=== PATIENT | female | born 1975 | race Hispanic/Latino ===

== ENCOUNTER 2020-06-09 00:18 | Emergency (ER) | payer SELFPAY ==
[2020-06-09 01:02] LABS: #Basophils 0.1 thou/uL (0.0-0.2); #Eosinphils 0.8 thou/uL (0.0-0.7); #Lymphocytes 1.4 thou/uL (1.20-3.40); #Monocytes 0.7 thou/uL (0.11-0.59); #Neutrophils 4.8 thou/uL (1.40-6.50); %Basophils 0.9 % (0.0-1.0); %Eosinophils 10.4 % (0.0-10.0); %Lymphocytes 18.6 % (21.0-51.0); %Monocytes 8.7 % (0.0-10.0); %Neutrophils 61.4 % (42.0-75.0); Hemoglobin 12.7 g/dL (12.0-16.0); Mean Corpuscular HGB CONC 34.3 g/dL (32.0-36.0); Mean Corpuscular Hemoglobin 31.5 pg (27.0-31.0); Mean Corpuscular Volume 91.8 fL (78.0-98.0); Platelet Count 382 thou/uL (130-400); RBC Distribution Width 11.8 % (11.5-14.5); Red Blood Cell (RBC) Count 4.03 mill/uL (4.20-5.40); White Blood Cell (WBC) Count 7.8 thou/uL (4.8-10.8)
[2020-06-09 01:22] LABS: ALT (SGPT) 13 U/L (8-55); AST (SGOT) 12 U/L (5-34); Albumin 3.7 g/dL (3.5-5.0); Alkaline Phosphatase 122 U/L (40-110); Anion Gap 13 mmol/L (10-20); BUN (Urea Nitrogen) 9 mg/dL (7.0-18.7); Bilirubin, Total 0.3 mg/dL (0.2-1.2); Calc. Creatinine Clearance 0 mL/min (70-130); Calcium 8.9 mg/dL (7.8-10.44); Carbon Dioxide 23 mmol/L (22-29); Chloride 107 mmol/L (98-107); Estimated GFR-MDRD 77; Globulin 3.6 g/dL (2.4-3.5); Glucose 115 mg/dL (70-105); Potassium 3.5 mmol/L (3.5-5.1); Protein, Total 7.3 g/dL (6.0-8.3); Sodium 139 mmol/L (136-145)
[2020-06-09] MEDS ORDERED: Ondansetron PF 4 MG/2 ML Vial ONE (01:22)
[2020-06-09] MEDS ORDERED: Acetaminophen 500 MG TAB ONE (01:23)
[2020-06-09] MEDS ORDERED: Metoclopramide HCl 10 MG/2 ML VIAL ONE (01:31)
[2020-06-09] MEDS ORDERED: diphenhydrAMINE 50 MG/ML VIAL ONE (01:31)
--- NOTE | 2020-06-09 07:22 | CT ---
PRELIMINARY REPORT/[facility]/EMERGENCY AFTER HOURS PROCEDURE: CT SCAN OF THE BRAIN WITHOUT IV CONTRAST CLINICAL HISTORY: Fall TECHNIQUE: Axial images obtained. Coronal images obtained. Sagittal images obtained. Exam is performed without intravenous contrast. Per PQRS, CT exam is performed using one or more of the following dose reduction technique: Automated exposure control, adjustment of mA and/or KV according to patient size, or use of iterative reconstr uction techniques. COMPARISON: None. FINDINGS: Negative for acute bleed. Negative for acute infarct. Normal sized ventricles. Extra-axial compartments are normal. Sinuses are clear. Mastoid air spaces are clear. Middle ear cavities are clear. Calvarium is intact. Scalp is unremarkable. IMPRESSION: 1. Negative for acute intracranial process. CT OF THE CERVICAL SPINE CLINICAL HISTORY: Fall TECHNIQUE: Axial images obtained. Coronal images obtained. Sagittal images obtained. Exam is performed without intravenous contrast. Per PQRS, CT exam is performed using one or more of the following dose reduction technique: Automated exposure control, adjustment of mA and/or KV according to patient size, or use of iterative reconstr uction techniques. COMPARISON: None. FINDINGS: Straightening of the cervical spine is seen which can be related to positioning vs muscle spasm. Negative for acute process in the cervical spine. Negative for acute compression fracture. Unremarkable soft tissues. Disc spaces are unremarkable. IMPRESSION: 1. Negative for acute process in the cervical spine. ELECTRONICALLY SIGNED BY: Macario Valdes MD Jun 09, 2020 1:08:37 AM CDT This report is intended for review by the ordering physician only, in accordance of law. If you recei ve this report in error, please call [facility] at [phone]. FINAL REPORT EMERGENCY AFTER HOURS CT CERVICAL SPINE WITHOUT CONTRAST: FINDINGS/IMPRESSION: I agree with the findings and impression given in the preliminary report per [facility] physici an. No evidence of acute osseous abnormality of the cervical spine. POS: EAA
--- NOTE | 2020-06-09 07:23 | CT ---
PRELIMINARY REPORT/[facility]/EMERGENCY AFTER HOURS PROCEDURE: CT SCAN OF THE BRAIN WITHOUT IV CONTRAST CLINICAL HISTORY: Fall TECHNIQUE: Axial images obtained. Coronal images obtained. Sagittal images obtained. Exam is performed without intravenous contrast. Per PQRS, CT exam is performed using one or more of the following dose reduction technique: Automated exposure control, adjustment of mA and/or KV according to patient size, or use of iterative reconstr uction techniques. COMPARISON: None. FINDINGS: Negative for acute bleed. Negative for acute infarct. Normal sized ventricles. Extra-axial compartments are normal. Sinuses are clear. Mastoid air spaces are clear. Middle ear cavities are clear. Calvarium is intact. Scalp is unremarkable. IMPRESSION: 1. Negative for acute intracranial process. CT OF THE CERVICAL SPINE CLINICAL HISTORY: Fall TECHNIQUE: Axial images obtained. Coronal images obtained. Sagittal images obtained. Exam is performed without intravenous contrast. Per PQRS, CT exam is performed using one or more of the following dose reduction technique: Automated exposure control, adjustment of mA and/or KV according to patient size, or use of iterative reconstr uction techniques. COMPARISON: None. FINDINGS: Straightening of the cervical spine is seen which can be related to positioning vs muscle spasm. Negative for acute process in the cervical spine. Negative for acute compression fracture. Unremarkable soft tissues. Disc spaces are unremarkable. IMPRESSION: 1. Negative for acute process in the cervical spine. ELECTRONICALLY SIGNED BY: Macario Valdes MD Jun 09, 2020 1:08:37 AM CDT This report is intended for review by the ordering physician only, in accordance of law. If you recei ve this report in error, please call [facility] at [phone]. FINAL REPORT EMERGENCY AFTER HOURS CT BRAIN: FINDINGS/IMPRESSION: I agree with the findings and impression given in the preliminary report per [facility] physici an. No evidence of acute intracranial abnormality. POS: EAA
== END 2020-06-09 02:20 | disposition home or self-care (01) ==
LOC: ERS 00:18
DX: S06.0X9A Concussion with loss of consciousness of unspecified duration, initial encounter (principal); J45.909 Unspecified asthma, uncomplicated; Z86.73 Personal history of transient ischemic attack (TIA), and cerebral infarction without residual deficits; Z87.891 Personal history of nicotine dependence; Z79.82 Long term (current) use of aspirin; W17.89XA Other fall from one level to another, initial encounter
CPT/HCPCS: 36415; 70450; 72125; 80053; 84484; 85025; 93005; 96361; 96374; 96375; J1200; J2405; J2765

== ENCOUNTER 2021-01-15 17:20 | Inpatient (IN) | payer SELFPAY ==
[2021-01-15 18:16] LABS: #Basophils 0.1 thou/uL (0.0-0.2); #Eosinphils 1.1 thou/uL (0.0-0.7); #Lymphocytes 1.5 thou/uL (1.20-3.40); #Monocytes 0.9 thou/uL (0.11-0.59); #Neutrophils 5.3 thou/uL (1.40-6.50); %Basophils 1.3 % (0.0-1.0); %Eosinophils 12.4 % (0.0-10.0); %Lymphocytes 16.4 % (21.0-51.0); %Monocytes 10.2 % (0.0-10.0); %Neutrophils 59.7 % (42.0-75.0); Hemoglobin 12.7 g/dL (12.0-16.0); Mean Corpuscular HGB CONC 34.3 g/dL (32.0-36.0); Mean Corpuscular Hemoglobin 31.5 pg (27.0-31.0); Mean Corpuscular Volume 91.8 fL (78.0-98.0); Mean Platelet Volume 6.8 fL (7.4-10.4); Platelet Count 390 thou/uL (130-400); RBC Distribution Width 11.5 % (11.5-14.5); Red Blood Cell (RBC) Count 4.03 mill/uL (4.20-5.40); White Blood Cell (WBC) Count 8.9 thou/uL (4.8-10.8)
[2021-01-15 18:36] LABS: ALT (SGPT) 10 U/L (8-55); AST (SGOT) 11 U/L (5-34); Albumin 3.8 g/dL (3.5-5.0); Alkaline Phosphatase 108 U/L (40-110); Anion Gap 12 mmol/L (10-20); BUN (Urea Nitrogen) 12 mg/dL (7.0-18.7); Bilirubin, Total 0.4 mg/dL (0.2-1.2); Calc. Creatinine Clearance 0 mL/min (70-130); Calcium 8.6 mg/dL (7.8-10.44); Carbon Dioxide 20 mmol/L (22-29); Chloride 108 mmol/L (98-107); Globulin 3.7 g/dL (2.4-3.5); Glucose 103 mg/dL (70-105); Potassium 3.3 mmol/L (3.5-5.1); Protein, Total 7.5 g/dL (6.0-8.3); Sodium 137 mmol/L (136-145)
[2021-01-15] MEDS ORDERED: Aspirin Chewable 81 MG TAB ONE (19:44)
[2021-01-15] MEDS ORDERED: Labetalol HCl 100 MG/20 ML VIAL SLOW IVP PRN (22:57)
[2021-01-15] MEDS ORDERED: hydrALAZINE 20 MG/ML VIAL SLOW IVP PRN (22:57)
[2021-01-15] MEDS ORDERED: Acetaminophen 325 MG TAB PO PRN (23:01)
[2021-01-15] MEDS ORDERED: Senokot S 8.6-50 MG TAB PO PRN (23:01)
[2021-01-15] MEDS ORDERED: Ondansetron ODT 4 MG TAB PO PRN (23:01)
[2021-01-16 00:12] LABS: BHCG - Serum Negative (NEGATIVE); Pregs Control Background? CLEAR/WHITE (CLR/WHITE); Pregs Control Bar Appear? YES (CONTROL BAR)
[2021-01-16 00:13] LABS: Troponin I 0.026 ng/mL (< 0.028)
[2021-01-16] MEDS ORDERED: Albuterol Sulfate 2.5 mg/3 ml Neb NEB PRN (00:33)
[2021-01-16 01:12] VITALS: BMI 36.7
[2021-01-16 01:15] LABS: Bilirubin Negative (Negative); Blood, Urine Negative (Negative); Clarity Turbid (Clear); Glucose, Urine (Dipstick) Normal (Negative); Ketone, Urine Negative (Negative); Leukocyte 25 Leu/uL (Negative); Nitrite Negative (Negative); Protein, Urine (Dipstick) 10 mg/dL (Neg-Trace); RBC/HPF 0-3 HPF (0-3); Specific Gravity, Urine 1.016 (1.002-1.036); Urobilinogen 3 mg/dL (Less than 2); pH, Urine 6.5 (5.0-9.0)
[2021-01-16 01:33] LABS: Bacteria/HPF 1+ HPF (None Seen)
[2021-01-16 02:41] LABS: Troponin I Less than 0.010 ng/mL (< 0.028)
[2021-01-16 05:11] LABS: #Eosinphils 1.1 thou/uL (0.0-0.7); #Lymphocytes 1.7 thou/uL (1.20-3.40); #Monocytes 0.9 thou/uL (0.11-0.59); #Neutrophils 3.7 thou/uL (1.40-6.50); %Basophils 0.5 % (0.0-1.0); %Monocytes 12.5 % (0.0-10.0); %Neutrophils 48.9 % (42.0-75.0); Hemoglobin 11.6 g/dL (12.0-16.0); Mean Corpuscular HGB CONC 34.6 g/dL (32.0-36.0); Mean Corpuscular Hemoglobin 31.8 pg (27.0-31.0); Mean Corpuscular Volume 91.8 fL (78.0-98.0); Mean Platelet Volume 7.1 fL (7.4-10.4); Platelet Count 336 thou/uL (130-400); RBC Distribution Width 11.5 % (11.5-14.5); Red Blood Cell (RBC) Count 3.64 mill/uL (4.20-5.40); White Blood Cell (WBC) Count 7.5 thou/uL (4.8-10.8)
[2021-01-16 05:39] LABS: Anion Gap 13 mmol/L (10-20); BUN (Urea Nitrogen) 15 mg/dL (7.0-18.7); Calc. Creatinine Clearance 119 mL/min (70-130); Calcium 8.3 mg/dL (7.8-10.44); Carbon Dioxide 20 mmol/L (22-29); Cardiac Risk 4.5 (Less than 4.5); Chloride 109 mmol/L (98-107); Cholesterol 161 mg/dl (< 200 Desired); Glucose 106 mg/dL (70-105); HDL Cholesterol 36 mg/dL (>60 Neg Risk); LDL Cholesterol, Calculated 107 mg/dL; Magnesium 1.8 mg/dL (1.6-2.6); Potassium 3.8 mmol/L (3.5-5.1); Sodium 138 mmol/L (136-145); Triglycerides 89 mg/dL (Less than 150)
[2021-01-16 05:59] LABS: Thyroid Stimulating Hormone 0.9802 uIU/mL (0.35-4.94)
[2021-01-16] MEDS ORDERED: Loperamide HCl 2 MG CAP PO PRN (07:40)
[2021-01-16] MEDS ORDERED: Zolpidem Tartrate 5 MG TAB PO PRN (07:40)
[2021-01-16] MEDS ORDERED: HYDROcodone/Acetaminophen 5/325 mg Tablet PO PRN (07:40)
[2021-01-16] MEDS ORDERED: Ondansetron PF 4 MG/2 ML Vial IVP PRN (07:40)
[2021-01-16] MEDS ORDERED: Sodium Chloride 0.65% Nasal 44 ML BOT EA NARE PRN (07:40)
[2021-01-16] MEDS ORDERED: Calcium Carbonate 500 MG ChewTAB PO PRN (07:40)
[2021-01-16] MEDS ORDERED: Loratadine 10 MG TAB PO PRN (07:40)
[2021-01-16] MEDS ORDERED: GUAIFENESIN SF SOLN 200 MG/10 ML UDCUP PO PRN (07:40)
[2021-01-16] MEDS ORDERED: Cepastat Lozenges 1 LOZ PO PRN (07:40)
[2021-01-16] MEDS ORDERED: hydrALAZINE 20 MG/ML VIAL SLOW IVP PRN (07:41)
[2021-01-16] MEDS ORDERED: Labetalol HCl 100 MG/20 ML VIAL SLOW IVP PRN (07:41)
[2021-01-16] MEDS ORDERED: Aspirin 325 mg Enteric Coated Tablet PO SCH (09:00)
[2021-01-16] MEDS ORDERED: Famotidine 20 MG TAB PO SCH (09:00)
[2021-01-16] MEDS ORDERED: Folic Acid 1 MG TAB PO SCH (09:00)
[2021-01-16] MEDS ORDERED: Cyanocobalamin (Vitamin B-12) 1,000 MCG TAB PO SCH (09:00)
[2021-01-16] MEDS ORDERED: Nitrofurantoin Monohyd/M-Cryst 100 MG CAP PO SCH (09:00)
[2021-01-16] MEDS ORDERED: Amlodipine 5 MG TAB PO SCH (11:30)
[2021-01-16 13:13] LABS: SARS-CoV-2 PCR by NAA Not Detected (NotDetected)
[2021-01-16 15:59] VITALS: BP 140/79; TEMP 97.7
[2021-01-16] MEDS ORDERED: Atorvastatin Calcium 40 MG TAB PO SCH (21:00)
[2021-01-17] MEDS ORDERED: Amlodipine 5 MG TAB PO SCH (09:00)
== END 2021-01-16 16:25 | disposition home or self-care (01) | DRG 305 ==
LOC: ERS 17:20 → 2SW 20:28
PROVIDERS: ADMIT Internal Medicine; ATTEND Internal Medicine
DX: I16.0 Hypertensive urgency (principal); I16.1 Hypertensive emergency; N39.0 Urinary tract infection, site not specified; M35.00 Sjogren syndrome, unspecified; J45.909 Unspecified asthma, uncomplicated; Z20.822 Contact with and (suspected) exposure to COVID-19; E53.8 Deficiency of other specified B group vitamins; E66.9 Obesity, unspecified; E87.6 Hypokalemia; Z87.891 Personal history of nicotine dependence; Z86.73 Personal history of transient ischemic attack (TIA), and cerebral infarction without residual deficits; Z68.36 Body mass index [BMI] 36.0-36.9, adult; Z88.8 Allergy status to other drugs, medicaments and biological substances; Z91.041 Radiographic dye allergy status; Z91.013 Allergy to seafood
CPT/HCPCS: 36415; 70450; 70551; 71045; 80048; 80053; 80061; 81001; 82607; 82746; 83735; 84443; 84484; 84703; 85025; 87635; 93005; 93306; 93880; 94640; 95816; 95819; 95957; J7611; U0003; U0005